=== PATIENT | male | born 1985 | race Two or more races ===

== ENCOUNTER 2020-12-07 01:16 | Emergency (ER) | payer SELFPAY ==
[~2020-12-07] VITALS: Ht 180.3 cm; Wt 74.8 kg
[2020-12-07 01:33] VITALS: BP 136/97
== END 2020-12-07 03:10 | disposition left against medical advice (07) ==
LOC: ER 01:16
DX: H92.01 Otalgia, right ear (principal); Z53.21 Procedure and treatment not carried out due to patient leaving prior to being seen by health care provider

== ENCOUNTER 2021-02-07 10:25 | Emergency (ER) | payer OTHER ==
[~2021-02-07] VITALS: Ht 180.3 cm; Wt 79.8 kg
[2021-02-07 10:56] VITALS: BP 119/70
== END 2021-02-07 12:54 | disposition home or self-care (01) ==
LOC: ER 10:25
DX: S66.911A Strain of unspecified muscle, fascia and tendon at wrist and hand level, right hand, initial encounter (principal); W22.8XXA Striking against or struck by other objects, initial encounter; Y93.89 Activity, other specified; Y92.89 Other specified places as the place of occurrence of the external cause; Y99.8 Other external cause status
CPT/HCPCS: 29125; 73130